=== PATIENT | female | born 2000 | race Caucasian/White ===

== ENCOUNTER → 2019-12-02 16:53 | Outpatient (BNVA) | payer OTHER, SELFPAY | DX: Z20.828 Contact with and (suspected) exposure to other viral communicable diseases (principal) | CPT/HCPCS: 87635 ==

== ENCOUNTER → 2020-01-14 15:02 | Outpatient (BNVA) | payer OTHER, SELFPAY | PROVIDERS: Visit Provider Nurse Practitioner Family | DX: Z11.59 Encounter for screening for other viral diseases (principal) | CPT/HCPCS: 87635 ==